=== PATIENT | male | born 1985 | race Caucasian/White ===

== ENCOUNTER 2017-02-08 15:04 | Emergency (ER) | payer OTHER ==
[2017-02-08 21:37] VITALS: BP 112/78
== END 2017-02-08 21:37 | disposition home or self-care (01) ==
LOC: ED 15:04
DX: B34.9 Viral infection, unspecified (principal); Z79.899 Other long term (current) drug therapy; F99 Mental disorder, not otherwise specified
CPT/HCPCS: Q0092

== ENCOUNTER 2017-02-10 13:47 | Inpatient (IN) | payer OTHER ==
[~2017-02-10] VITALS: Ht 175.3 cm; Wt 54.2 kg
[2017-02-10 16:42] LABS: BASOPHIL % 0.2 % (0-2); PLATELET COUNT 151 x10^3mcL (130-400); RED CELL DISTRIBUTION WIDTH 12.8 % (11.5-14.5)
[2017-02-10 16:47] LABS: CALCIUM 8.2 mg/dL (8.5-10.1); CARBON DIOXIDE 30.3 mmol/L (21-32); CHLORIDE SERUM 112 mmol/L (98-107); CREATININE SERUM 0.7 mg/dL (0.7-1.3); GFR1 > 60 mL/min; GLUCOSE SERUM 85 mg/dL (74-106); POTASSIUM SERUM 4.1 mmol/L (3.5-5.1); SODIUM SERUM 151 mmol/L (136-145)
[2017-02-10 17:00] LABS: ALKALINE PHOSPHATASE 67 U/L (46-116); ALT/SGPT 18 U/L (16-63); AST/SGOT 18 U/L (15-37); BILIRUBIN TOTAL 0.32 mg/dL (0.20-1.00); T4(THYROXINE) 7.8 ug/dL (4.7-13.3); TOTAL PROTEIN, SERUM 6.2 g/dL (6.4-8.2)
[2017-02-10 17:04] LABS: ALBUMIN 3.1 g/dL (3.4-5.0)
[2017-02-10 17:16] LABS: UA SPECIFIC GRAVITY 1.025 (1.005-1.035); microscopic required? YES; urine erythrocyte NEGATIVE (NEGATIVE)
[2017-02-10 19:09] LABS: AMPHETAMINE QUAL UR NONE DETECTED (NEG <=1000)
[2017-02-10] MEDS ORDERED: BENZTROPINE MESY2 MG PO (19:24)
[2017-02-10] MEDS ORDERED: GABAPENTIN400 M1 PO (19:24)
[2017-02-10] MEDS ORDERED: BUSPIRONE HCL5 MG PO (19:24)
[2017-02-10] MEDS ORDERED: SINEMET 25-1001 TAB PO (19:25)
[2017-02-10] MEDS ORDERED: COLACE100 MG PO (19:25)
[2017-02-10] MEDS ORDERED: LACTULOSE10 GM/152 PO (19:26)
[2017-02-10] MEDS ORDERED: VITAMIN B121000 MCG PO (19:26)
[2017-02-10] MEDS ORDERED: TRAZODONE50 M1 PO (19:26)
[2017-02-10] MEDS ORDERED: HALOPERIDOL5 MG PO ×3 (19:27→19:34)
[2017-02-10] MEDS ORDERED: DEPAKOTE ER500 MG PO (19:27)
[2017-02-10] MEDS ORDERED: NATURAL FIBER PO (19:29)
[2017-02-10] MEDS ORDERED: GABAPENTIN600 M1 PO (19:30)
[2017-02-10] MEDS ORDERED: THICK-IT1 EACH PO (19:32)
[2017-02-10] MEDS ORDERED: MAPAP EXTRA ST500 M1 PO (19:32)
[2017-02-10 20:23] VITALS: BP 106/75
[2017-02-10 20:35] LABS: MAGNESIUM 1.9 mg/dL (1.8-2.4); PHOSPHOROUS 5.2 mg/dL (2.5-4.9)
[2017-02-10 20:40] LABS: T3 TOTAL 0.89 ng/mL
[2017-02-10 20:46] LABS: CHOLESTEROL/HDL RATIO 2.3
[2017-02-10 20:47] LABS: FREE T4 1.3 ng/dL (0.76-1.46); FREE THYROXINE INDEX 2.7 ug/dL (1.4-4.5); T4(THYROXINE) 7.2 ug/dL (4.7-13.3)
[2017-02-10 20:51] VITALS: BP 106/75
[2017-02-11 05:29] VITALS: BP 92/55
[2017-02-11 06:41] LABS: BASOPHIL % 0.4 % (0-2); RED CELL DISTRIBUTION WIDTH 12.6 % (11.5-14.5)
[2017-02-11 06:58] LABS: PLATELET COUNT 121 x10^3mcL (130-400)
[2017-02-11 07:02] LABS: CALCIUM 7.6 mg/dL (8.5-10.1); CARBON DIOXIDE 26.3 mmol/L (21-32); CHLORIDE SERUM 114 mmol/L (98-107); CREATININE SERUM 0.6 mg/dL (0.7-1.3); GFR1 > 60 mL/min; GLUCOSE SERUM 79 mg/dL (74-106); PHOSPHOROUS 4.1 mg/dL (2.5-4.9); POTASSIUM SERUM 3.8 mmol/L (3.5-5.1); SODIUM SERUM 149 mmol/L (136-145)
[2017-02-11 10:00] VITALS: BP 92/56
[2017-02-11 17:26] VITALS: BP 92/56
[2017-02-11 17:27] VITALS: BP 113/68
[2017-02-11 22:54] VITALS: BP 113/77
[2017-02-12 06:19] LABS: BASOPHIL % 0.5 % (0-2); PLATELET COUNT 135 x10^3mcL (130-400); RED CELL DISTRIBUTION WIDTH 12.8 % (11.5-14.5)
[2017-02-12 06:56] VITALS: BP 127/77
[2017-02-12 06:58] LABS: CALCIUM 8.4 mg/dL (8.5-10.1); CARBON DIOXIDE 28.5 mmol/L (21-32); CHLORIDE SERUM 109 mmol/L (98-107); CREATININE SERUM 0.5 mg/dL (0.7-1.3); GFR1 > 60 mL/min; GLUCOSE SERUM 76 mg/dL (74-106); PHOSPHOROUS 4.3 mg/dL (2.5-4.9); SODIUM SERUM 145 mmol/L (136-145)
[2017-02-12 09:32] VITALS: BP 115/80
[2017-02-12 13:19] VITALS: Ht 175.3 cm; Wt 54.2 kg
[2017-02-12 13:26] VITALS: BP 111/68
[2017-02-12 17:13] VITALS: BP 124/80
[2017-02-12 17:42] VITALS: BP 124/80
== END 2017-02-12 18:38 | disposition home or self-care (01) | DRG 422 ==
LOC: ED 13:47 → DU 19:01 → MU 02-11 11:57
PROVIDERS: Emergency Medicine; ADMIT Family Medicine
DX: E87.0 Hyperosmolality and hypernatremia (principal); E86.0 Dehydration; N17.0 Acute kidney failure with tubular necrosis; G93.41 Metabolic encephalopathy; E44.0 Moderate protein-calorie malnutrition; G20 Parkinson's disease; G60.0 Hereditary motor and sensory neuropathy; D69.6 Thrombocytopenia, unspecified; E83.51 Hypocalcemia; F79 Unspecified intellectual disabilities; G40.909 Epilepsy, unspecified, not intractable, without status epilepticus; G80.9 Cerebral palsy, unspecified; E83.39 Other disorders of phosphorus metabolism; F29 Unspecified psychosis not due to a substance or known physiological condition; F41.9 Anxiety disorder, unspecified; F32.9 Major depressive disorder, single episode, unspecified; K59.00 Constipation, unspecified; D64.9 Anemia, unspecified
CPT/HCPCS: 36600; 82962; 83880; 84439; C1758; C9113; J1630; J1956; J7030; Q0092

== ENCOUNTER 2017-02-15 21:41 | Emergency (ER) | payer OTHER ==
[~2017-02-15 21:41] MED LIST: BENZTROPINE MESY2 MG PO; BUSPIRONE HCL5 MG PO; COLACE100 MG PO; DEPAKOTE ER500 MG PO; GABAPENTIN400 M1 PO; GABAPENTIN600 M1 PO; HALOPERIDOL5 MG PO; LACTULOSE10 GM/152 PO; MAPAP EXTRA ST500 M1 PO; NATURAL FIBER PO; SINEMET 25-1001 TAB PO; THICK-IT1 EACH PO; TRAZODONE50 M1 PO; VITAMIN B121000 MCG PO
[2017-02-16 00:03] LABS: BASOPHIL % 0.4 % (0-2); PLATELET COUNT 167 x10^3mcL (130-400); RED CELL DISTRIBUTION WIDTH 12.7 % (11.5-14.5)
[2017-02-16 00:11] LABS: CALCIUM 8.2 mg/dL (8.5-10.1); CARBON DIOXIDE 30.2 mmol/L (21-32); CHLORIDE SERUM 107 mmol/L (98-107); CREATININE SERUM 0.7 mg/dL (0.7-1.3); GFR1 > 60 mL/min; GLUCOSE SERUM 87 mg/dL (74-106); POTASSIUM SERUM 4.2 mmol/L (3.5-5.1); SODIUM SERUM 146 mmol/L (136-145)
[2017-02-16 00:23] LABS: ALKALINE PHOSPHATASE 63 U/L (46-116); ALT/SGPT 7 U/L (16-63); AST/SGOT 18 U/L (15-37); HDL CHOLESTEROL 48 mg/dL (40-60); T4(THYROXINE) 7.7 ug/dL (4.7-13.3); TOTAL PROTEIN, SERUM 6.2 g/dL (6.4-8.2)
[2017-02-16 00:25] LABS: CHOLESTEROL 114 mg/dL (<200)
[2017-02-16 02:49] LABS: MAGNESIUM 2.1 mg/dL (1.8-2.4); PHOSPHOROUS 4.1 mg/dL (2.5-4.9)
[2017-02-16 02:54] LABS: CHOLESTEROL/HDL RATIO 2.3
[2017-02-16 07:13] LABS: microscopic required? NO
[2017-02-16 07:27] LABS: urine erythrocyte NEGATIVE (NEGATIVE)
[2017-02-16 07:40] LABS: AMPHETAMINE QUAL UR NONE DETECTED (NEG <=1000)
[2017-02-16 11:40] VITALS: BP 124/86
== END 2017-02-16 12:00 | disposition home or self-care (01) ==
LOC: ED 21:41
PROVIDERS: Emergency Medicine; Family Medicine
DX: I95.89 Other hypotension (principal); E86.0 Dehydration
CPT/HCPCS: 83880; C9113; J7030; Q0092

== ENCOUNTER 2017-05-08 10:40 | Emergency (ER) | payer OTHER ==
[~2017-05-08] VITALS: Ht 175.3 cm; Wt 63.5 kg
[2017-05-08 10:52] VITALS: BP 127/59
== END 2017-05-08 13:15 | disposition home or self-care (01) ==
LOC: ED 10:40
DX: R60.0 Localized edema (principal); G20 Parkinson's disease; F79 Unspecified intellectual disabilities; Z79.899 Other long term (current) drug therapy
CPT/HCPCS: Q0092

== ENCOUNTER 2017-11-02 11:55 | Inpatient (IN) | payer OTHER ==
[~2017-11-02] VITALS: Ht 180.3 cm; Wt 64.7 kg
[~2017-11-02 11:55] MED LIST changes: -BENZTROPINE MESY2 MG PO
[2017-11-02 11:59] VITALS: Ht 180.3 cm; Wt 64.7 kg
[2017-11-02 13:10] LABS: BASOPHIL % 0.1 % (0-2); PLATELET COUNT 165 x10^3mcL (130-400); RED CELL DISTRIBUTION WIDTH 12.4 % (11.5-14.5)
[2017-11-02 14:05] LABS: ALKALINE PHOSPHATASE 51 U/L (46-116); ALT/SGPT 47 U/L (16-63); AST/SGOT 25 U/L (15-37); BILIRUBIN TOTAL 0.6 mg/dL (0.20-1.00); CALCIUM 8.5 mg/dL (8.5-10.1); CARBON DIOXIDE 24.1 mmol/L (21-32); CHLORIDE SERUM 103 mmol/L (98-107); CREATININE SERUM 0.8 mg/dL (0.7-1.3); GFR1 > 60 mL/min; GLUCOSE SERUM 127 mg/dL (74-106); LIPASE 51 IU/L (73-393); POTASSIUM SERUM 3.9 mmol/L (3.5-5.1); SODIUM SERUM 137 mmol/L (136-145); TOTAL PROTEIN, SERUM 6.2 g/dL (6.4-8.2)
[2017-11-02] MEDS ORDERED: BUSPIRONE HCL5 MG PO (14:37)
[2017-11-02] MEDS ORDERED: BENZTROPINE MESY2 MG PO (14:37)
[2017-11-02] MEDS ORDERED: GOOD SENSE OMEP20 MG PO (14:38)
[2017-11-02] MEDS ORDERED: ZYPREXA10 M1 PO (14:39)
[2017-11-02 15:21] LABS: T3 TOTAL 0.84 ng/mL
[2017-11-02 15:29] LABS: CHOLESTEROL/HDL RATIO 2.7; PHOSPHOROUS 2.1 mg/dL (2.5-4.9)
[2017-11-02 15:31] VITALS: BP 101/53
[2017-11-02 15:42] LABS: FREE T4 1.25 ng/dL (0.76-1.46); FREE THYROXINE INDEX 3.2 ug/dL (1.4-4.5); T4(THYROXINE) 7.9 ug/dL (4.7-13.3)
[2017-11-02 17:49] VITALS: BP 103/58
[2017-11-02 20:08] VITALS: BP 97/68
[2017-11-03 06:01] VITALS: BP 100/54
[2017-11-03 08:52] LABS: BASOPHIL % 0.3 % (0-2); PLATELET COUNT 137 x10^3mcL (130-400); RED CELL DISTRIBUTION WIDTH 12.6 % (11.5-14.5)
[2017-11-03 09:50] LABS: CARBON DIOXIDE 23.3 mmol/L (21-32); CHLORIDE SERUM 110 mmol/L (98-107); CREATININE SERUM 0.5 mg/dL (0.7-1.3); GFR1 > 60 mL/min; GLUCOSE SERUM 78 mg/dL (74-106); MAGNESIUM 2.2 mg/dL (1.8-2.4); PHOSPHOROUS 3.2 mg/dL (2.5-4.9); POTASSIUM SERUM 3.7 mmol/L (3.5-5.1); SODIUM SERUM 143 mmol/L (136-145)
[2017-11-03 10:05] VITALS: BP 103/63
[2017-11-03 11:58] LABS: microscopic required? NO
[2017-11-03 12:18] LABS: UA SPECIFIC GRAVITY 1.015 (1.005-1.035); urine erythrocyte NEGATIVE (NEGATIVE)
[2017-11-03 20:20] VITALS: BP 121/72
[2017-11-04 06:13] VITALS: BP 116/70
[2017-11-04 06:46] LABS: CARBON DIOXIDE 25.4 mmol/L (21-32); CHLORIDE SERUM 109 mmol/L (98-107); CREATININE SERUM 0.5 mg/dL (0.7-1.3); GFR1 > 60 mL/min; GLUCOSE SERUM 75 mg/dL (74-106); MAGNESIUM 2.2 mg/dL (1.8-2.4); PHOSPHOROUS 4.5 mg/dL (2.5-4.9); POTASSIUM SERUM 3.7 mmol/L (3.5-5.1); SODIUM SERUM 143 mmol/L (136-145)
[2017-11-04 06:53] LABS: BASOPHIL % 0.3 % (0-2); PLATELET COUNT 137 x10^3mcL (130-400); RED CELL DISTRIBUTION WIDTH 12.4 % (11.5-14.5)
[2017-11-04 08:53] VITALS: BP 115/60
[2017-11-04] MEDS ORDERED: LEVAQUIN750 MG PO (13:58)
[2017-11-04] MEDS ORDERED: LAC PO (13:59)
[2017-11-04] MEDS ORDERED: FLA500 PO (13:59)
[2017-11-04] MEDS ORDERED: BENZTROPINE MESY2 MG PO (14:27)
[2017-11-04] MEDS ORDERED: EPZICOM1 TAB (14:27)
[2017-11-04 14:29] VITALS: BP 115/60
== END 2017-11-04 15:25 | DRG 720 ==
LOC: ED 11:55 → DU 14:01 → MU 11-03 11:31
PROVIDERS: Emergency Medicine; Family Medicine
DX: A41.9 Sepsis, unspecified organism (principal); G20 Parkinson's disease; E44.0 Moderate protein-calorie malnutrition; E83.39 Other disorders of phosphorus metabolism; K21.9 Gastro-esophageal reflux disease without esophagitis; D64.9 Anemia, unspecified; K52.9 Noninfective gastroenteritis and colitis, unspecified; F79 Unspecified intellectual disabilities; R65.20 Severe sepsis without septic shock; Z68.1 Body mass index [BMI] 19.9 or less, adult
CPT/HCPCS: 83880; 84439; 87804; J0456; J0696; J3490; J7030; J7050; Q9967